=== PATIENT | male | born 1940 | race Caucasian/White ===

== ENCOUNTER 2018-02-11 08:04 | Inpatient (IN) | payer MEDICARE, BC ==
[~2018-02-11 08:04] MED LIST: CEFAZOLIN 1 GM INJ; DESFLURANE 15 MIN
[2018-02-11] MEDS: LACTATED RINGER'S 1,000 ML IV* ×4 (09:10→09:25)
[2018-02-11] MEDS: CEFAZOLIN 2 GM/50 ML (PMX) 50 ML IVPB (09:23)
[2018-02-11] MEDS ORDERED: ETOMIDATE 20 MG INJ (09:50)
[2018-02-11] MEDS ORDERED: SUCCINYLCHOLINE CHLORIDE 100 MG/5 ML SYG IV (09:51)
[2018-02-11] MEDS ORDERED: MIDAZOLAM 1 MG/ML 2 ML INJ (09:51)
[2018-02-11] MEDS ORDERED: ROCURONIUM 50 MG INJ (09:51)
[2018-02-11] MEDS ORDERED: LABETALOL HCL 20MG INJ IV (11:00)
[2018-02-11] MEDS ORDERED: hydrALAzine 20 MG INJ IV (11:00)
[2018-02-11] MEDS ORDERED: HYDROmorphONE 1 MG/5 ML IV SYRINGE IV ×2 (11:00)
[2018-02-11] MEDS ORDERED: DEXAMETHASONE 4 MG/ML 1 ML INJ (11:05)
[2018-02-11] MEDS ORDERED: ONDANSETRON 4 MG INJ (11:05)
[2018-02-11] MEDS ORDERED: GLYCOPYRROLATE 0.4 MG INJ (11:16)
[2018-02-11] MEDS: POLYMYXIN/BACITRACIN 1L IRRIG (11:27)
[2018-02-11] MEDS: BUPIVACAINE 0.25% (MPF) 30 ML INJ (11:27)
[2018-02-11] MEDS ORDERED: PHENYLephrine (100 MCG/ML) 5ML SYG (12:07)
[2018-02-11] MEDS ORDERED: SUGAMMADEX SODIUM 200 MG/2 ML VIAL IV (12:15)
[2018-02-11] MEDS ORDERED: THROMBIN 5000 UNIT VIAL (12:29)
[2018-02-11] MEDS ORDERED: HYDROCODONE/APAP (5/325) TAB PO (13:00)
[2018-02-11] MEDS ORDERED: ZOLPIDEM 5 MG TAB PO (13:00)
[2018-02-11] MEDS ORDERED: NACL 0.9% 3 ML SYG IV (13:00)
[2018-02-11] MEDS ORDERED: PROCHLORPERAZINE 10 MG TAB PO (13:00)
[2018-02-11] MEDS ORDERED: DIAZEPAM 5 MG TAB PO (13:00)
[2018-02-11] MEDS ORDERED: NALOXONE (0.4 MG/ML) INJ IV (13:00)
[2018-02-11] MEDS ORDERED: DIAZEPAM 5 MG/ML SYG IM (13:00)
[2018-02-11] MEDS ORDERED: ACETAMINOPHEN 325 MG TAB PO (13:00)
[2018-02-11] MEDS ORDERED: BETHANECHOL 25 MG TAB PO (13:00)
[2018-02-11] MEDS ORDERED: TRIMETHOBENZAMIDE 100 MG/ML VIAL IM (13:00)
[2018-02-11] MEDS ORDERED: DIPHENHYDRAMINE 50 MG CAP PO (13:00)
[2018-02-11] MEDS ORDERED: CEPASTAT LOZENGE MT (13:00)
[2018-02-11] MEDS: HYDROmorphONE 0.2 MG/ML PCA IV (13:15)
[2018-02-11] MEDS: ONDANSETRON 4 MG INJ IV (13:21)
[2018-02-11] MEDS: DEXTROSE 5%-0.45% NACL 1,000 ML IV ×2 (15:22→22:35)
[2018-02-11] MEDS: FINASTERIDE 5 MG TAB PO (18:06)
[2018-02-11] MEDS: CEFAZOLIN 1 GM/50 ML (PMX) 50 ML IVPB (18:09)
[2018-02-11] MEDS: FLECAINIDE 100 MG TAB PO (21:15)
[2018-02-11] MEDS: ATORVASTATIN 10 MG TAB PO (21:15)
[2018-02-11] MEDS: RANITIDINE 150 MG TAB PO (21:15)
[2018-02-12] MEDS: CEFAZOLIN 1 GM/50 ML (PMX) 50 ML IVPB ×3 (00:05→11:11)
[2018-02-12] MEDS: DEXTROSE 5%-0.45% NACL 1,000 ML IV (03:04)
[2018-02-12 05:30] LABS: HEMATOCRIT 36.5 % (42.0-52.0); HEMOGLOBIN 12.5 g/dl (14.0-18.0)
[2018-02-12] MEDS: AL HYDROX/MG HYDROX/SIMETH 30 ML CUP PO (05:30)
[2018-02-12 06:49] LABS: ANION GAP 7 (8-16); BLOOD UREA NITROGEN 13 mg/dl (7-20); CALCIUM 8.6 mg/dl (8.4-10.2); CARBON DIOXIDE 27 mmol/L (21-31); CHLORIDE 105 mmol/L (97-110); CREATININE 0.64 mg/dl (0.61-1.24); GLUCOSE 139 mg/dl (70-220); POTASSIUM 4.2 mmol/L (3.5-5.1); SODIUM 135 mmol/L (135-144)
[2018-02-12] MEDS: BETHANECHOL 25 MG TAB PO ×2 (07:34→11:09)
[2018-02-12] MEDS: FINASTERIDE 5 MG TAB PO (08:25)
[2018-02-12] MEDS: HYDROCHLOROTHIAZIDE 12.5 MG CAP PO (08:25)
[2018-02-12] MEDS: FLECAINIDE 100 MG TAB PO (08:25)
[2018-02-12] MEDS: LISINOPRIL 20 MG TAB PO (08:25)
[2018-02-12] MEDS: RANITIDINE 150 MG TAB PO (08:26)
[2018-02-12] MEDS: ATENOLOL 25 MG TAB PO (08:26)
[2018-02-12] MEDS: ASCORBIC ACID 500 MG TAB PO (08:26)
[2018-02-12] MEDS: CHOLECALCIFEROL 2,000 UNIT CAP PO (08:26)
[2018-02-12] MEDS: FERROUS SULFATE (EC) 325 MG TAB PO ×2 (08:27→13:00)
[2018-02-12] MEDS: DOCUSATE SODIUM 100 MG CAP PO (08:27)
[2018-02-12] MEDS: HYDROCODONE/APAP (5/325) TAB PO (08:28)
[2018-02-12] MEDS ORDERED: NON-FORMULARY/PATIENT OWN MED (Lisinopril/Hydrochlorothiazide (Lisinopril-Hctz 20-12.5 mg PO (09:00)
[2018-02-12 09:47] LABS: ADD UMIC YES; UR ASCORBIC ACID NEGATIVE (NEGATIVE); UR BILIRUBIN (Dip) NEGATIVE (NEGATIVE); UR BLOOD (Dip) 1+ mg/dL (NEGATIVE); UR CLARITY CLEAR (CLEAR); UR COLOR STRAW (YELLOW); UR GLUCOSE (Dip) NEGATIVE (NEGATIVE); UR KETONES (Dip) NEGATIVE (NEGATIVE); UR LEUKOCYTE ESTERASE (Dip) NEGATIVE Leu/ul (NEGATIVE); UR MUCUS FEW /HPF (NONE SEEN); UR NITRITE (Dip) NEGATIVE (NEGATIVE); UR RBC 1 /HPF (0-5); UR SPECIFIC GRAVITY (Dip) 1.006 (1.003-1.030); UR TOTAL PROTEIN (Dip) NEGATIVE (NEGATIVE); UR UROBILINOGEN (Dip) NEGATIVE (NEGATIVE); UR WBC 1 /HPF (0-5)
== END 2018-02-12 14:02 | disposition home or self-care (01) | DRG 520 ==
LOC: REC 08:04 → MS1 13:26
PROC: 0ST40ZZ Resection of Lumbosacral Disc, Open Approach (ICD-10-PCS; principal; 2018-02-11 10:00)
PROC: 0ST40ZZ Resection of Lumbosacral Disc, Open Approach (ICD-10-PCS; 2018-02-11 10:00)
PROC: 4A11X4G Monitoring of Peripheral Nervous Electrical Activity, Intraoperative, External Approach (ICD-10-PCS; 2018-02-11 10:00)
DX: M51.27 Other intervertebral disc displacement, lumbosacral region (principal); E78.5 Hyperlipidemia, unspecified; I48.91 Unspecified atrial fibrillation; I10 Essential (primary) hypertension; N40.0 Benign prostatic hyperplasia without lower urinary tract symptoms
CPT/HCPCS: 72020; 80048; 81001; 85014; 85018; 86850; 86900; 86901; 86920; 87086; 88304; 97116; 97161; 97530

== ENCOUNTER 2018-11-18 05:30 | Inpatient (IN) | payer MEDICARE, BC ==
[2018-11-18] MEDS: LACTATED RINGER'S 1,000 ML IV (06:40)
[2018-11-18] MEDS: CEFAZOLIN 2 GM/50 ML (PMX) 50 ML IVPB (06:50)
[2018-11-18] MEDS ORDERED: MIDAZOLAM 1 MG/ML 2 ML INJ (07:12)
[2018-11-18] MEDS ORDERED: PROPOFOL 20 ML (07:12)
[2018-11-18] MEDS ORDERED: PHENYLephrine (100 MCG/ML) 10ML SYG (07:12)
[2018-11-18] MEDS ORDERED: ROCURONIUM 50 MG INJ (07:12)
[2018-11-18] MEDS ORDERED: SEVOFLURANE 15 MIN (07:12)
[2018-11-18] MEDS ORDERED: LABETALOL HCL 20MG INJ (07:21)
[2018-11-18] MEDS: BUPIVACAINE 0.25% (MPF) 10 ML 10 ML VIAL INJ (07:41)
[2018-11-18] MEDS ORDERED: BUPIVACAINE 0.25% (MPF) 30 ML INJ (07:41)
[2018-11-18] MEDS: POLYMYXIN/BACITRACIN 1L IRRIG IRR (07:41)
[2018-11-18] MEDS ORDERED: METOCLOPRAMIDE 10 MG INJ ×2 (08:16→10:28)
[2018-11-18] MEDS ORDERED: DEXAMETHASONE 4 MG/ML 5 ML INJ (08:16)
[2018-11-18] MEDS ORDERED: ONDANSETRON 4 MG INJ (08:16)
[2018-11-18] MEDS ORDERED: SUGAMMADEX SODIUM 200 MG/2 ML VIAL IV (08:17)
[2018-11-18] MEDS ORDERED: HETASTARCH 6% NACL 500 ML (08:37)
[2018-11-18] MEDS ORDERED: GELATIN SIZE 100 SPONGE (09:30)
[2018-11-18] MEDS ORDERED: THROMBIN 20,000 UNIT VIAL (09:31)
[2018-11-18] MEDS ORDERED: POLYMYXIN/BACITRACIN 1L IRRIG (09:31)
[2018-11-18] MEDS ORDERED: CEFAZOLIN 1 GM INJ (09:47)
[2018-11-18] MEDS: METOCLOPRAMIDE 10 MG INJ IV (10:29)
[2018-11-18] MEDS ORDERED: LABETALOL HCL 20MG INJ IV (10:30)
[2018-11-18] MEDS ORDERED: EPHEDrine 25 MG/5 ML SYG IV (10:30)
[2018-11-18] MEDS ORDERED: HYDROmorphONE 1 MG/5 ML IV SYRINGE IV ×3 (10:30→10:33)
[2018-11-18] MEDS ORDERED: ONDANSETRON 4 MG INJ IV ×2 (10:30→11:00)
[2018-11-18] MEDS ORDERED: OXYCODONE/ACETAMINOPHEN (5/325) TAB PO (10:30)
[2018-11-18] MEDS ORDERED: hydrALAzine 20 MG INJ IV (10:30)
[2018-11-18] MEDS ORDERED: FENTAnyl 50 MCG/ML VIAL IV ×3 (10:30)
[2018-11-18] MEDS: HYDROmorphONE 1 MG/5 ML IV SYRINGE IV (10:33)
[2018-11-18] MEDS ORDERED: BETHANECHOL 25 MG TAB PO (11:00)
[2018-11-18] MEDS ORDERED: ACETAMINOPHEN 325 MG TAB PO (11:00)
[2018-11-18] MEDS ORDERED: NACL 0.9% 3 ML SYG IV (11:00)
[2018-11-18] MEDS ORDERED: DIAZEPAM 5 MG TAB PO (11:00)
[2018-11-18] MEDS ORDERED: NALOXONE (0.4 MG/ML) INJ IV (11:00)
[2018-11-18] MEDS ORDERED: PROCHLORPERAZINE 10 MG TAB PO (11:00)
[2018-11-18] MEDS ORDERED: AL HYDROX/MG HYDROX/SIMETH 30 ML CUP PO (11:00)
[2018-11-18] MEDS ORDERED: DIAZEPAM 5 MG/ML SYG IM (11:00)
[2018-11-18] MEDS ORDERED: HYDROCODONE/APAP (5/325) TAB PO ×2 (11:00)
[2018-11-18] MEDS ORDERED: DIPHENHYDRAMINE 50 MG CAP PO (11:00)
[2018-11-18] MEDS ORDERED: TRIMETHOBENZAMIDE 100 MG/ML VIAL IM (11:00)
[2018-11-18] MEDS ORDERED: ZOLPIDEM 5 MG TAB PO (11:00)
[2018-11-18] MEDS ORDERED: HYDROmorphONE 0.2 MG/ML PCA (11:09)
[2018-11-18] MEDS: HYDROmorphONE 0.2 MG/ML PCA IV ×2 (11:22→11:23)
[2018-11-18] MEDS: CEFAZOLIN 1 GM/50 ML (PMX) 50 ML IVPB ×2 (12:49→18:13)
[2018-11-18] MEDS: DEXTROSE 5%-0.45% NACL 1,000 ML IV ×2 (12:49→21:10)
[2018-11-18] MEDS: CEPASTAT LOZENGE MT (13:29)
[2018-11-18] MEDS: RANITIDINE 150 MG TAB PO (21:10)
[2018-11-18] MEDS: ATORVASTATIN 10 MG TAB PO (21:11)
[2018-11-18] MEDS: FLECAINIDE 100 MG TAB PO (21:11)
[2018-11-18] MEDS: TAMSULOSIN (SR) 0.4 MG CAP PO (21:11)
[2018-11-19] MEDS: CEFAZOLIN 1 GM/50 ML (PMX) 50 ML IVPB ×2 (00:28→05:15)
[2018-11-19 05:36] LABS: HEMATOCRIT 32.3 % (42.0-52.0); HEMOGLOBIN 10.7 g/dl (14.0-18.0)
[2018-11-19 06:09] LABS: ANION GAP 3 (5-13); BLOOD UREA NITROGEN 22 mg/dl (7-20); CALCIUM 8.1 mg/dl (8.4-10.2); CARBON DIOXIDE 26 mmol/L (21-31); CHLORIDE 105 mmol/L (97-110); CREATININE 0.89 mg/dl (0.61-1.24); GLUCOSE 164 mg/dl (70-220); POTASSIUM 4.2 mmol/L (3.5-5.1); SODIUM 134 mmol/L (135-144)
[2018-11-19] MEDS: DEXTROSE 5%-0.45% NACL 1,000 ML IV ×2 (06:32→16:49)
[2018-11-19] MEDS: LACTATED RINGER'S 1,000 ML IV (07:30)
[2018-11-19] MEDS: BETHANECHOL 25 MG TAB PO (08:29)
[2018-11-19] MEDS: ATENOLOL 25 MG TAB PO (09:00)
[2018-11-19] MEDS: LISINOPRIL 20 MG TAB PO (09:00)
[2018-11-19] MEDS: HYDROCHLOROTHIAZIDE 12.5 MG CAP PO (09:00)
[2018-11-19] MEDS ORDERED: NON-FORMULARY/PATIENT OWN MED (Lisinopril/Hydrochlorothiazide (Lisinopril-Hctz 20-12.5 mg PO (09:00)
[2018-11-19 09:33] LABS: ADD UMIC YES; UR ASCORBIC ACID NEGATIVE (NEGATIVE); UR BILIRUBIN (Dip) NEGATIVE (NEGATIVE); UR BLOOD (Dip) 2+ mg/dL (NEGATIVE); UR CLARITY CLEAR (CLEAR); UR COLOR STRAW (YELLOW); UR GLUCOSE (Dip) NEGATIVE (NEGATIVE); UR KETONES (Dip) NEGATIVE (NEGATIVE); UR LEUKOCYTE ESTERASE (Dip) NEGATIVE Leu/ul (NEGATIVE); UR NITRITE (Dip) NEGATIVE (NEGATIVE); UR RBC 3 /HPF (0-5); UR TOTAL PROTEIN (Dip) NEGATIVE (NEGATIVE); UR UROBILINOGEN (Dip) NEGATIVE (NEGATIVE); UR WBC 1 /HPF (0-5)
[2018-11-19] MEDS: DOCUSATE SODIUM 100 MG CAP PO (09:58)
[2018-11-19] MEDS: FERROUS SULFATE (EC) 325 MG TAB PO ×2 (09:58→13:44)
[2018-11-19] MEDS: RANITIDINE 150 MG TAB PO (09:58)
[2018-11-19] MEDS: ASCORBIC ACID 500 MG TAB PO (09:58)
[2018-11-19] MEDS: FLECAINIDE 100 MG TAB PO (09:59)
[2018-11-19] MEDS: FINASTERIDE 5 MG TAB PO (10:00)
[2018-11-19] MEDS: ERGOCALCIFEROL (8000 UNITS/ML PO SYG) PO (11:51)
== END 2018-11-19 20:45 | disposition home or self-care (01) | DRG 520 ==
LOC: SDS 05:30 → REC 10:57 → MS1 12:23
PROC: 0SB40ZZ Excision of Lumbosacral Disc, Open Approach (ICD-10-PCS; principal; 2018-11-18 07:00)
PROC: 01NR0ZZ Release Sacral Nerve, Open Approach (ICD-10-PCS; 2018-11-18 07:00)
PROC: 01NB0ZZ Release Lumbar Nerve, Open Approach (ICD-10-PCS; 2018-11-18 07:00)
DX: M51.17 Intervertebral disc disorders with radiculopathy, lumbosacral region (principal); I10 Essential (primary) hypertension; E78.5 Hyperlipidemia, unspecified; Z79.82 Long term (current) use of aspirin; M48.061 Spinal stenosis, lumbar region without neurogenic claudication; N40.0 Benign prostatic hyperplasia without lower urinary tract symptoms
CPT/HCPCS: 72020; 80048; 81001; 85014; 85018; 86850; 86900; 86901; 86920; 87086; 88304; 88311; 97116; 97161; 97530